=== PATIENT | female | born 1950 | race Two or more races ===

== ENCOUNTER 2017-11-17 12:56 | Outpatient (CLI) | payer OTHER | END 2017-11-17 16:36 | disposition home or self-care (01) | LOC: MAMO-SONO 12:56 | DX: Z12.31 Encounter for screening mammogram for malignant neoplasm of breast (principal); Z87.898 Personal history of other specified conditions ==

== ENCOUNTER 2018-08-25 11:37 | Outpatient (CLI) | payer OTHER | END 2018-08-25 11:55 | disposition home or self-care (01) | LOC: NUCLEAR 11:37 | DX: M81.0 Age-related osteoporosis without current pathological fracture (principal) ==

== ENCOUNTER 2018-09-18 09:41 | Outpatient (CLI) | payer OTHER | END 2018-09-18 09:43 | disposition home or self-care (01) | LOC: SONOGRAMA 09:41 | DX: K80.81 Other cholelithiasis with obstruction (principal); K82.0 Obstruction of gallbladder ==

== ENCOUNTER 2018-09-24 13:16 | Emergency (ER) | payer OTHER ==
[~2018-09-24] VITALS: Ht 165.1 cm; Wt 60.8 kg
[2018-09-24] MEDS ORDERED: SYNTHROID50 MCG (13:27)
== END 2018-09-24 14:07 | disposition home or self-care (01) ==
LOC: ER 13:16
DX: R10.11 Right upper quadrant pain (principal)

== ENCOUNTER 2018-09-26 09:56 | Outpatient (CLI) | payer OTHER ==
[~2018-09-26 09:56] MED LIST: SYNTHROID50 MCG
== END 2018-09-26 10:00 | disposition home or self-care (01) ==
LOC: LAB 09:56
DX: E06.3 Autoimmune thyroiditis (principal)

== ENCOUNTER 2018-10-01 11:31 | Outpatient (CLI) | payer OTHER | END 2018-10-01 11:41 | disposition home or self-care (01) | LOC: NUCLEAR 11:31 | DX: K82.9 Disease of gallbladder, unspecified (principal) | CPT/HCPCS: 78227; A9537 ==

== ENCOUNTER 2018-11-20 09:04 | Outpatient (CLI) | payer OTHER | END 2018-11-20 09:22 | disposition home or self-care (01) | LOC: MAMO-SONO 09:04 | DX: Z12.31 Encounter for screening mammogram for malignant neoplasm of breast (principal); Z87.898 Personal history of other specified conditions; N64.89 Other specified disorders of breast; R07.82 Intercostal pain ==

== ENCOUNTER 2018-12-11 12:17 | Outpatient (CLI) | payer OTHER | END 2018-12-11 12:22 | disposition home or self-care (01) | LOC: LAB 12:17 | DX: E11.21 Type 2 diabetes mellitus with diabetic nephropathy (principal); N39.0 Urinary tract infection, site not specified; E11.65 Type 2 diabetes mellitus with hyperglycemia; D64.89 Other specified anemias; E78.2 Mixed hyperlipidemia; Z12.11 Encounter for screening for malignant neoplasm of colon ==

== ENCOUNTER 2019-04-12 16:08 | Outpatient (CLI) | payer OTHER | END 2019-04-12 17:27 | disposition home or self-care (01) | LOC: LAB 16:08 | DX: M81.0 Age-related osteoporosis without current pathological fracture (principal) ==

== ENCOUNTER 2019-05-10 13:56 | Outpatient (CLI) | payer OTHER | END 2019-05-10 14:04 | disposition home or self-care (01) | LOC: LAB 13:56 | DX: E06.3 Autoimmune thyroiditis (principal) ==

== ENCOUNTER 2019-07-14 15:14 | Outpatient (CLI) | payer OTHER | END 2019-07-14 15:20 | disposition home or self-care (01) | LOC: LAB 15:14 | DX: R31.1 Benign essential microscopic hematuria (principal) ==

== ENCOUNTER 2019-07-17 13:22 | Emergency (ER) | payer OTHER ==
[~2019-07-17] VITALS: Ht 165.1 cm; Wt 59.9 kg
== END 2019-07-17 15:48 | disposition home or self-care (01) ==
LOC: ER 13:22
DX: E03.8 Other specified hypothyroidism (principal); R00.2 Palpitations

== ENCOUNTER 2019-07-23 11:17 | Outpatient (CLI) | payer OTHER | END 2019-07-23 11:21 | disposition home or self-care (01) | LOC: SONOGRAMA 11:17 | DX: N28.1 Cyst of kidney, acquired (principal) ==

== ENCOUNTER 2019-07-24 10:11 | Outpatient (CLI) | payer OTHER | END 2019-07-24 10:19 | disposition home or self-care (01) | LOC: LAB 10:11 | DX: I10 Essential (primary) hypertension (principal) ==

== ENCOUNTER 2019-09-25 11:46 | Emergency (ER) | payer OTHER ==
[~2019-09-25] VITALS: Ht 165.1 cm; Wt 61.2 kg
== END 2019-09-25 16:19 | disposition home or self-care (01) ==
LOC: ER 11:46
DX: R10.31 Right lower quadrant pain (principal)

== ENCOUNTER 2019-11-10 10:29 | Outpatient (CLI) | payer OTHER | END 2019-11-10 15:00 | disposition home or self-care (01) | LOC: LAB 10:29 | DX: E11.65 Type 2 diabetes mellitus with hyperglycemia (principal); E78.2 Mixed hyperlipidemia; E03.8 Other specified hypothyroidism; N39.0 Urinary tract infection, site not specified; D64.89 Other specified anemias; Z12.11 Encounter for screening for malignant neoplasm of colon ==

== ENCOUNTER → 2019-11-11 10:41 | Outpatient (CLI) | payer OTHER | END | disposition home or self-care (01) | LOC: LAB 10:41 | DX: E11.65 Type 2 diabetes mellitus with hyperglycemia (principal); E78.2 Mixed hyperlipidemia; E03.8 Other specified hypothyroidism; N39.0 Urinary tract infection, site not specified; D64.89 Other specified anemias; Z12.11 Encounter for screening for malignant neoplasm of colon ==

== ENCOUNTER 2019-11-23 09:22 | Outpatient (CLI) | payer OTHER | END 2019-11-23 09:25 | disposition home or self-care (01) | LOC: MAMO-SONO 09:22 | DX: Z12.31 Encounter for screening mammogram for malignant neoplasm of breast (principal) ==

== ENCOUNTER 2020-05-16 09:30 | Outpatient (CLI) | payer OTHER | END 2020-05-16 09:40 | disposition home or self-care (01) | LOC: LAB 09:30 | PROVIDERS: ATTEND Specialist | DX: N39.0 Urinary tract infection, site not specified (principal); B96.29 Other Escherichia coli [E. coli] as the cause of diseases classified elsewhere ==

== ENCOUNTER 2020-12-09 09:02 | Outpatient (CLI) | payer OTHER | END 2020-12-09 09:09 | disposition home or self-care (01) | LOC: LAB 09:02 | PROVIDERS: ATTEND Specialist | DX: E55.9 Vitamin D deficiency, unspecified (principal); N39.0 Urinary tract infection, site not specified; E03.8 Other specified hypothyroidism; D64.89 Other specified anemias; Z12.11 Encounter for screening for malignant neoplasm of colon; E78.2 Mixed hyperlipidemia; J45.998 Other asthma ==

== ENCOUNTER → 2021-02-20 | Outpatient (CLI) | payer OTHER | END | disposition home or self-care (01) | LOC: NUCLEAR 09:57 | PROVIDERS: ATTEND Specialist | DX: I82.493 Acute embolism and thrombosis of other specified deep vein of lower extremity, bilateral (principal) ==

== ENCOUNTER 2021-03-08 13:03 | Outpatient (CLI) | payer OTHER | END 2021-03-08 13:08 | disposition home or self-care (01) | LOC: NUCLEAR 13:03 | PROVIDERS: ATTEND Specialist | DX: M81.0 Age-related osteoporosis without current pathological fracture (principal) ==

== ENCOUNTER → 2021-04-04 | Outpatient (CLI) | payer OTHER | END | disposition home or self-care (01) | LOC: MAMO-SONO 10:23 | PROVIDERS: ATTEND Specialist | DX: Z12.31 Encounter for screening mammogram for malignant neoplasm of breast (principal) ==

== ENCOUNTER → 2021-05-16 11:15 | Outpatient (CLI) | payer OTHER | END | disposition home or self-care (01) | LOC: LAB 11:15 | PROVIDERS: ATTEND Specialist | DX: D64.89 Other specified anemias (principal); E03.8 Other specified hypothyroidism; E78.2 Mixed hyperlipidemia ==

== ENCOUNTER 2021-05-22 07:17 | Outpatient (CLI) | payer OTHER | END 2021-05-22 07:19 | disposition home or self-care (01) | LOC: SONOGRAMA 07:17 | PROVIDERS: ATTEND Specialist | DX: Q61.01 Congenital single renal cyst (principal); K80.00 Calculus of gallbladder with acute cholecystitis without obstruction ==

== ENCOUNTER → 2021-08-04 08:49 | Outpatient (CLI) | payer OTHER | END | disposition home or self-care (01) | LOC: LAB 08:49 | PROVIDERS: ATTEND Specialist | DX: N39.0 Urinary tract infection, site not specified (principal); E11.65 Type 2 diabetes mellitus with hyperglycemia; E78.2 Mixed hyperlipidemia ==

== ENCOUNTER 2021-10-29 09:13 | Outpatient (CLI) | payer OTHER | END 2021-10-29 09:14 | disposition home or self-care (01) | LOC: RAD 09:13 | PROVIDERS: ATTEND Specialist | DX: E04.1 Nontoxic single thyroid nodule (principal); J45.998 Other asthma; N20.0 Calculus of kidney ==

== ENCOUNTER 2021-11-03 09:18 | Outpatient (CLI) | payer OTHER | END 2021-11-03 09:25 | disposition home or self-care (01) | LOC: LAB 09:18 | PROVIDERS: ATTEND Internal Medicine Endocrinology, Diabetes & Metabolism | DX: D64.89 Other specified anemias (principal); E78.2 Mixed hyperlipidemia; E55.9 Vitamin D deficiency, unspecified; E03.8 Other specified hypothyroidism; D50.8 Other iron deficiency anemias ==

== ENCOUNTER 2021-11-24 08:40 | Outpatient (CLI) | payer OTHER | END 2021-11-24 08:49 | disposition home or self-care (01) | LOC: LAB 08:40 | PROVIDERS: ATTEND Specialist | DX: E03.9 Hypothyroidism, unspecified (principal); E11.21 Type 2 diabetes mellitus with diabetic nephropathy; N39.9 Disorder of urinary system, unspecified; E78.2 Mixed hyperlipidemia; Z12.11 Encounter for screening for malignant neoplasm of colon; D64.9 Anemia, unspecified; E11.65 Type 2 diabetes mellitus with hyperglycemia ==

== ENCOUNTER → 2022-01-17 | Outpatient (CLI) | payer OTHER | END | disposition home or self-care (01) | LOC: SONOGRAMA 10:16 | PROVIDERS: ATTEND Specialist | DX: N28.1 Cyst of kidney, acquired (principal) ==

== ENCOUNTER 2022-02-02 09:06 | Outpatient (CLI) | payer OTHER | END 2022-02-02 09:18 | disposition home or self-care (01) | LOC: LAB 09:06 | PROVIDERS: ATTEND Internal Medicine Endocrinology, Diabetes & Metabolism | DX: E03.9 Hypothyroidism, unspecified (principal); D64.9 Anemia, unspecified; I10 Essential (primary) hypertension; E78.2 Mixed hyperlipidemia ==

== ENCOUNTER → 2022-07-27 08:19 | Outpatient (CLI) | payer OTHER | END | disposition home or self-care (01) | LOC: LAB 08:19 | PROVIDERS: ATTEND Internal Medicine Endocrinology, Diabetes & Metabolism | DX: E03.9 Hypothyroidism, unspecified (principal); D64.9 Anemia, unspecified; I10 Essential (primary) hypertension; E78.2 Mixed hyperlipidemia ==

== ENCOUNTER 2022-10-26 08:21 | Outpatient (CLI) | payer OTHER | END 2022-10-26 08:25 | disposition home or self-care (01) | LOC: LAB 08:21 | PROVIDERS: ATTEND Specialist | DX: E03.9 Hypothyroidism, unspecified (principal); N39.9 Disorder of urinary system, unspecified; Z12.11 Encounter for screening for malignant neoplasm of colon; D64.9 Anemia, unspecified; K75.81 Nonalcoholic steatohepatitis (NASH); N39.0 Urinary tract infection, site not specified ==

== ENCOUNTER 2022-10-30 09:43 | Outpatient (CLI) | payer OTHER | END 2022-10-30 09:47 | disposition home or self-care (01) | LOC: MAMO-SONO 09:43 | PROVIDERS: ATTEND Internal Medicine Endocrinology, Diabetes & Metabolism | DX: N64.0 Fissure and fistula of nipple (principal) ==

== ENCOUNTER 2023-01-02 09:06 | Outpatient (CLI) | payer OTHER | END 2023-01-02 09:18 | disposition home or self-care (01) | LOC: SONOGRAMA 09:06 | PROVIDERS: ATTEND Specialist | DX: R31.1 Benign essential microscopic hematuria (principal) ==

== ENCOUNTER 2023-02-01 08:24 | Outpatient (CLI) | payer OTHER | END 2023-02-01 08:27 | disposition home or self-care (01) | LOC: LAB 08:24 | PROVIDERS: ATTEND Internal Medicine Endocrinology, Diabetes & Metabolism | DX: E11.65 Type 2 diabetes mellitus with hyperglycemia (principal); E03.9 Hypothyroidism, unspecified; E55.9 Vitamin D deficiency, unspecified; E78.2 Mixed hyperlipidemia; N39.0 Urinary tract infection, site not specified ==

== ENCOUNTER 2023-02-06 12:08 | Outpatient (CLI) | payer OTHER | END 2023-02-06 12:14 | disposition home or self-care (01) | LOC: RAD 12:08 | PROVIDERS: ATTEND Specialist | DX: J45.991 Cough variant asthma (principal) ==

== ENCOUNTER 2023-02-08 08:20 | Outpatient (CLI) | payer OTHER | END 2023-02-08 08:28 | disposition home or self-care (01) | LOC: LAB 08:20 | PROVIDERS: ATTEND Specialist | DX: M00.80 Arthritis due to other bacteria, unspecified joint (principal); E11.69 Type 2 diabetes mellitus with other specified complication; E03.8 Other specified hypothyroidism; N39.9 Disorder of urinary system, unspecified; E11.21 Type 2 diabetes mellitus with diabetic nephropathy; D64.89 Other specified anemias; Z13.220 Encounter for screening for lipoid disorders ==

== ENCOUNTER 2023-03-12 13:33 | Outpatient (CLI) | payer OTHER | END 2023-03-12 13:34 | disposition home or self-care (01) | LOC: NUCLEAR 13:33 | PROVIDERS: ATTEND Internal Medicine Endocrinology, Diabetes & Metabolism | DX: M81.0 Age-related osteoporosis without current pathological fracture (principal) ==

== ENCOUNTER 2023-04-19 08:35 | Outpatient (CLI) | payer OTHER | END 2023-04-19 08:39 | disposition home or self-care (01) | LOC: LAB 08:35 | PROVIDERS: ATTEND Internal Medicine Endocrinology, Diabetes & Metabolism | DX: E03.8 Other specified hypothyroidism (principal); D64.9 Anemia, unspecified; I10 Essential (primary) hypertension ==

== ENCOUNTER 2023-05-10 08:08 | Outpatient (CLI) | payer OTHER | END 2023-05-10 08:21 | disposition home or self-care (01) | LOC: LAB 08:08 | PROVIDERS: ATTEND Specialist | DX: M00.80 Arthritis due to other bacteria, unspecified joint (principal); N39.9 Disorder of urinary system, unspecified; E11.69 Type 2 diabetes mellitus with other specified complication; R19.5 Other fecal abnormalities; Z13.220 Encounter for screening for lipoid disorders; E03.8 Other specified hypothyroidism; D64.89 Other specified anemias ==

== ENCOUNTER → 2023-06-19 | Outpatient (CLI) | payer OTHER | END | disposition home or self-care (01) | LOC: RAD 11:59 | PROVIDERS: ATTEND Physical Medicine & Rehabilitation | DX: M25.561 Pain in right knee (principal) ==

== ENCOUNTER 2023-07-05 08:29 | Outpatient (CLI) | payer OTHER ==
[2023-07-05 10:06] LABS: CALCIUM 8.2 mg/dL (8.5-10.1); CREATININE SERUM 0.46 mg/dL (0.55-1.02); GFR 133.15; POTASSIUM 3.82 mEq/L (3.5-5.1)
== END 2023-07-05 08:31 | disposition home or self-care (01) ==
LOC: LAB 08:29
PROVIDERS: ATTEND Specialist
DX: N28.1 Cyst of kidney, acquired (principal)

== ENCOUNTER 2023-08-16 08:57 | Outpatient (CLI) | payer OTHER ==
[2023-08-16 10:21] LABS: HEMATOCRIT 40.1 % (36.0-45.00); HEMOGLOBIN 13.6 g/dL (12.0-15.00); MEAN CELL VOLUME 92.3 fL (80.00-100.00); MEAN CORPUSCULAR HEMOGLOBIN 31.4 pg (27.00-32.0); PLATELET COUNT 285 K/uL (150-450); RED BLOOD COUNT 4.34 M/uL (4.00-6.00)
[2023-08-16 11:22] LABS: ALBUMIN 3.8 gm/dL (3.4-5.0); BILIRUBIN TOTAL 0.81 mg/dL (0.3-1.2); CALCIUM 8.9 mg/dL (8.5-10.1); CREATININE SERUM 0.49 mg/dL (0.55-1.02); FREE TRIODOTIRONINE 2.59 pg/ml (2.18-3.98); GFR 123.79; GLOBULINA 3.1 G/DL (2.4-3.5); POTASSIUM 3.81 mEq/L (3.5-5.1); T4 FREE 1.27 NG/ML (0.76-1.46); TOTAL PROTEIN 6.9 gm/dL (6.4-8.2); TSH 0.654 uIU/mL (0.358-3.74)
== END 2023-08-16 08:59 | disposition home or self-care (01) ==
LOC: LAB 08:57
PROVIDERS: ATTEND Specialist
DX: E11.69 Type 2 diabetes mellitus with other specified complication (principal); E03.8 Other specified hypothyroidism; Z13.220 Encounter for screening for lipoid disorders; N39.9 Disorder of urinary system, unspecified; R19.5 Other fecal abnormalities; D64.89 Other specified anemias; E11.21 Type 2 diabetes mellitus with diabetic nephropathy

== ENCOUNTER 2023-11-01 11:18 | Outpatient (CLI) | payer OTHER ==
[2023-11-01 13:02] LABS: HEMATOCRIT 41.4 % (36.0-45.00); HEMOGLOBIN 14.2 g/dL (12.0-15.00); MEAN CELL VOLUME 95.2 fL (80.00-100.00); MEAN CORPUSCULAR HEMOGLOBIN 32.6 pg (27.00-32.0); MEAN CORPUSCULAR HGB CONC 34.3 g/dl (32.0-36.0); PLATELET COUNT 271 K/uL (150-450); RED BLOOD COUNT 4.35 M/uL (4.00-6.00); RED CELL DISTRIBUTION WIDTH 13.4 % (11.5-14.5)
[2023-11-01 13:33] LABS: ALBUMIN 3.9 gm/dL (3.4-5.0); BILIRUBIN TOTAL 0.94 mg/dL (0.3-1.2); CALCIUM 8.8 mg/dL (8.5-10.1); CREATININE SERUM 0.53 mg/dL (0.55-1.02); GFR 113.08; T4 FREE 1.35 NG/ML (0.76-1.46); TOTAL PROTEIN 6.9 gm/dL (6.4-8.2); TSH 0.432 uIU/mL (0.358-3.74)
== END 2023-11-01 11:27 | disposition home or self-care (01) ==
LOC: LAB 11:18
PROVIDERS: ATTEND Internal Medicine Endocrinology, Diabetes & Metabolism
DX: I10 Essential (primary) hypertension (principal); E03.9 Hypothyroidism, unspecified; D44.9 Neoplasm of uncertain behavior of unspecified endocrine gland; D51.9 Vitamin B12 deficiency anemia, unspecified

== ENCOUNTER 2023-12-25 10:28 | Outpatient (CLI) | payer OTHER | END 2023-12-25 10:35 | disposition home or self-care (01) | LOC: MAMO-SONO 10:28 | PROVIDERS: ATTEND Specialist | DX: N60.39 Fibrosclerosis of unspecified breast (principal); Z12.39 Encounter for other screening for malignant neoplasm of breast ==

== ENCOUNTER 2023-12-31 09:21 | Outpatient (CLI) | payer OTHER | END 2023-12-31 09:31 | disposition home or self-care (01) | LOC: SONOGRAMA 09:21 | PROVIDERS: ATTEND Specialist | DX: N28.1 Cyst of kidney, acquired (principal); Z91.013 Allergy to seafood ==

== ENCOUNTER → 2024-01-03 08:58 | Outpatient (CLI) | payer OTHER ==
[2024-01-03 12:46] LABS: CALCIUM 8.9 mg/dL (8.5-10.1); CREATININE SERUM 0.54 mg/dL (0.55-1.02); GFR 110.66; POTASSIUM 4.43 mEq/L (3.5-5.1)
[2024-01-03 12:57] LABS: PH,URINE 6.5 (5.0-8.0); URINE APPEARANCE Cloudy; URINE BILIRRUBIN Negative (NEGATIVE); URINE BLOOD Trace; URINE COLOR Yellow; URINE GLUCOSE Negative (NEGATIVE); URINE LEUKOCYTE Negative; URINE NITRATE Negative; URINE PROTEIN Negative (NEGATIVE); URINE UROBILINOGEN 0.2 E.U./dl
[2024-01-03 13:00] LABS: URINE RBC 6.8 uL (0.0-20.8)
[2024-01-03 13:02] LABS: URINE EPITHELIAL CELLS 0.6 uL (0.0-38.8); URINE WBC 0.6 uL (0.0-23.2)
== END | disposition home or self-care (01) ==
LOC: LAB 08:58
PROVIDERS: ATTEND Specialist
DX: N28.1 Cyst of kidney, acquired (principal); A60.04 Herpesviral vulvovaginitis

== ENCOUNTER 2024-06-05 10:31 | Outpatient (CLI) | payer OTHER ==
[2024-06-05 12:41] LABS: HEMATOCRIT 39.6 % (36.0-45.00); HEMOGLOBIN 13.8 g/dL (12.0-15.00); MEAN CELL VOLUME 93.1 fL (80.00-100.00); MEAN CORPUSCULAR HEMOGLOBIN 32.6 pg (27.00-32.0); PLATELET COUNT 259 K/uL (150-450); RED BLOOD COUNT 4.25 M/uL (4.00-6.00); RED CELL DISTRIBUTION WIDTH 13.3 % (11.5-14.5)
[2024-06-05 12:54] LABS: CREATININE URINE RANDOM < 13.00 MG/DL (30-125)
[2024-06-05 13:43] LABS: BILIRUBIN TOTAL 0.92 mg/dL (0.3-1.2); BILIRUBIN,CONJUGATED 0.26 mg/dL (0.0-0.2); BILIRUBIN,UNCONJUGATED 0.66 mg/dL (0.0-0.6); CHOL HDL RATIO 2.7 (0-5.0); FREE TRIODOTIRONINE 2.63 pg/ml (2.18-3.98); T4 FREE 1.19 NG/ML (0.76-1.46); TSH 0.47 uIU/mL (0.358-3.74)
== END 2024-06-05 11:04 | disposition home or self-care (01) ==
LOC: LAB 10:31
PROVIDERS: ATTEND Specialist
DX: E03.9 Hypothyroidism, unspecified (principal); E78.2 Mixed hyperlipidemia; D64.9 Anemia, unspecified; E11.65 Type 2 diabetes mellitus with hyperglycemia; K57.81 Diverticulitis of intestine, part unspecified, with perforation and abscess with bleeding; E11.21 Type 2 diabetes mellitus with diabetic nephropathy

== ENCOUNTER 2024-07-03 08:57 | Outpatient (CLI) | payer OTHER ==
[2024-07-03 10:52] LABS: PH,URINE 6.5 (5.0-8.0); URINE APPEARANCE Clear; URINE BILIRRUBIN Negative (NEGATIVE); URINE BLOOD Negative; URINE COLOR Yellow; URINE GLUCOSE Negative (NEGATIVE); URINE KETONE Negative (NEGATIVE); URINE LEUKOCYTE Negative; URINE NITRATE Negative; URINE PROTEIN Negative (NEGATIVE); URINE UROBILINOGEN 0.2 E.U./dl
[2024-07-03 10:56] LABS: URINE RBC 5.3 uL (0.0-20.8)
[2024-07-03 11:15] LABS: CALCIUM 8.4 mg/dL (8.5-10.1); CREATININE SERUM 0.44 mg/dL (0.55-1.02); GFR 139.78; POTASSIUM 4.3 mEq/L (3.5-5.1)
[2024-07-03 11:16] LABS: URINE BACTERIA 3.7 uL (0.0-1933); URINE EPITHELIAL CELLS 0.4 uL (0.0-38.8); URINE WBC 0.3 uL (0.0-23.2)
== END 2024-07-03 09:06 | disposition home or self-care (01) ==
LOC: LAB 08:57
PROVIDERS: ATTEND Specialist
DX: N28.1 Cyst of kidney, acquired (principal)

== ENCOUNTER 2024-07-13 09:18 | Emergency (ER) | payer OTHER ==
[~2024-07-13] VITALS: Ht 165.1 cm; Wt 63.0 kg
[2024-07-13] MEDS ORDERED: KETOROLAC TROMETHAMINE 30 MG VIAL IM STA (10:35)
== END 2024-07-13 13:23 | disposition home or self-care (01) ==
LOC: ER 09:19
DX: S52.591A Other fractures of lower end of right radius, initial encounter for closed fracture (principal); W19.XXXA Unspecified fall, initial encounter; Y93.89 Activity, other specified; Y92.89 Other specified places as the place of occurrence of the external cause; Y99.8 Other external cause status; E03.8 Other specified hypothyroidism; Z91.013 Allergy to seafood
CPT/HCPCS: 29125; 73110; 96372; 99283; J1885

== ENCOUNTER 2024-07-14 16:17 | Outpatient (CLI) | payer OTHER ==
[2024-07-14 17:11] LABS: HEMATOCRIT 41.1 % (36.0-45.00); HEMOGLOBIN 14.2 g/dL (12.0-15.00); MEAN CELL VOLUME 94.4 fL (80.00-100.00); MEAN CORPUSCULAR HEMOGLOBIN 32.5 pg (27.00-32.0); MEAN CORPUSCULAR HGB CONC 34.5 g/dl (32.0-36.0); PLATELET COUNT 303 K/uL (150-450); RED BLOOD COUNT 4.36 M/uL (4.00-6.00); RED CELL DISTRIBUTION WIDTH 13.1 % (11.5-14.5)
[2024-07-14 17:14] LABS: PH,URINE 5.5 (5.0-8.0); URINE APPEARANCE Clear; URINE BACTERIA 31.4 uL (0.0-1933); URINE BILIRRUBIN Negative (NEGATIVE); URINE BLOOD Large; URINE COLOR Dark Yellow; URINE EPITHELIAL CELLS 6.3 uL (0.0-38.8); URINE GLUCOSE Negative (NEGATIVE); URINE KETONE 15 (NEGATIVE); URINE LEUKOCYTE Trace; URINE NITRATE Negative; URINE PROTEIN 30 (NEGATIVE); URINE RBC 350.5 uL (0.0-20.8); URINE WBC 7.1 uL (0.0-23.2)
[2024-07-14 17:21] LABS: INR 0.95; PARTIAL THROMBOPLASTIN TIME 28.4 SECONDS (22.0-34.0); PROTHROMBIN TIME 10.4 SECONDS (9.0-11.5)
[2024-07-14 17:25] LABS: ALBUMIN 4.3 gm/dL (3.4-5.0); BILIRUBIN TOTAL 1.02 mg/dL (0.3-1.2); CALCIUM 8.6 mg/dL (8.5-10.1); CREATININE SERUM 0.57 mg/dL (0.55-1.02); GFR 103.68; GLOBULINA 3.2 G/DL (2.4-3.5); POTASSIUM 3.88 mEq/L (3.5-5.1); TOTAL PROTEIN 7.5 gm/dL (6.4-8.2)
[2024-07-14 17:56] LABS: COL EPI 105 SECONDS (82-175)
== END 2024-07-14 16:24 | disposition home or self-care (01) ==
LOC: RAD 16:17
PROVIDERS: ATTEND Orthopaedic Surgery
DX: D64.9 Anemia, unspecified (principal); E88.89 Other specified metabolic disorders; D68.8 Other specified coagulation defects; N39.0 Urinary tract infection, site not specified; Z22.322 Carrier or suspected carrier of Methicillin resistant Staphylococcus aureus; E11.9 Type 2 diabetes mellitus without complications; Z76.89 Persons encountering health services in other specified circumstances

== ENCOUNTER → 2024-07-15 11:22 | Outpatient (CLI) | payer OTHER ==
[~2024-07-15 11:22] MED LIST changes: +B12 ACTIVE1000 MCG PO; +BIOTIN1 MG PO; +ZETIA10 MG PO
== END | disposition home or self-care (01) ==
LOC: EKG 11:22
PROVIDERS: ATTEND Orthopaedic Surgery
DX: I10 Essential (primary) hypertension (principal)

== ENCOUNTER 2024-07-15 13:54 | Outpatient (CLI) | payer OTHER ==
[~2024-07-15 13:54] MED LIST changes: -B12 ACTIVE1000 MCG PO; -BIOTIN1 MG PO; -ZETIA10 MG PO
[2024-07-16] MEDS ORDERED: B12 ACTIVE1000 MCG PO (10:41)
[2024-07-16] MEDS ORDERED: BIOTIN1 MG PO (10:41)
[2024-07-16] MEDS ORDERED: ZETIA10 MG PO (10:41)
== END 2024-07-15 13:56 | disposition home or self-care (01) ==
LOC: SONOGRAMA 13:54
PROVIDERS: ATTEND Specialist
DX: S37.009A Unspecified injury of unspecified kidney, initial encounter (principal)

== ENCOUNTER 2024-07-20 05:20 | Day surgery (SDC) | payer OTHER ==
[~2024-07-20 05:20] MED LIST changes: +B12 ACTIVE1000 MCG PO; +BIOTIN1 MG PO; +ZETIA10 MG PO
[2024-07-20] MEDS ORDERED: CEFAZOLIN SODIUM 1,000 MG VIAL IV ONE (08:30)
[2024-07-20] MEDS ORDERED: MORPHINE SULFATE 4 MG/ML VIAL IV ONE ×2 (10:00→10:30)
== END 2024-07-20 13:20 | disposition home or self-care (01) ==
LOC: CIR.AMB 05:20
PROVIDERS: ATTEND Orthopaedic Surgery
DX: S52.571A Other intraarticular fracture of lower end of right radius, initial encounter for closed fracture (principal); M24.531 Contracture, right wrist; Z91.013 Allergy to seafood; E03.9 Hypothyroidism, unspecified
CPT/HCPCS: 25609; 25280; L8699

== ENCOUNTER 2024-07-29 10:38 | Outpatient (CLI) | payer OTHER | END 2024-07-29 10:42 | disposition home or self-care (01) | LOC: RAD 10:38 | PROVIDERS: ATTEND Orthopaedic Surgery | DX: S52.572D Other intraarticular fracture of lower end of left radius, subsequent encounter for closed fracture with routine healing (principal) ==

== ENCOUNTER 2024-09-01 09:45 | Outpatient (CLI) | payer OTHER ==
[2024-09-01 10:21] LABS: HEMATOCRIT 38.9 % (36.0-45.00); HEMOGLOBIN 13.6 g/dL (12.0-15.00); MEAN CELL VOLUME 92.9 fL (80.00-100.00); MEAN CORPUSCULAR HEMOGLOBIN 32.5 pg (27.00-32.0); PLATELET COUNT 296 K/uL (150-450); RED BLOOD COUNT 4.19 M/uL (4.00-6.00); RED CELL DISTRIBUTION WIDTH 13.2 % (11.5-14.5)
[2024-09-01 10:47] LABS: PH,URINE 6.5 (5.0-8.0); URINE APPEARANCE Clear; URINE BILIRRUBIN Negative (NEGATIVE); URINE BLOOD Trace; URINE COLOR Yellow; URINE GLUCOSE Negative (NEGATIVE); URINE KETONE Negative (NEGATIVE); URINE LEUKOCYTE Negative; URINE NITRATE Negative; URINE PROTEIN Negative (NEGATIVE); URINE UROBILINOGEN 0.2 E.U./dl
[2024-09-01 10:51] LABS: URINE RBC 2.4 uL (0.0-20.8)
[2024-09-01 10:53] LABS: ALKALINE PHOSPHATASE 37 U/L (50-136); ALT/SGPT 17 U/L (12-78); ANION GAP 6 (10.0-20.0); AST/SGOT 17 U/L (15-37); BILIRUBIN TOTAL 0.82 mg/dL (0.3-1.2); BLOOD UREA NITROGEN 7 mg/dL (7-18); BUN CREA RATIO 16 (7.0-25.0); CALCIUM 8.8 mg/dL (8.5-10.1); CARBON DIOXIDE 32 mEq/L (21-32); CHLORIDE 107 mmol/L (98-107); CHOL HDL RATIO 2.8 (0-5.0); CHOLESTEROL 204 mg/dL (0-200); CREATININE SERUM 0.45 mg/dL (0.55-1.02); GLOBULINA 2.8 G/DL (2.4-3.5); GLUCOSE FASTING 91 mg/dL (65-100); HDL 73 mg/dl (40-60); LDL 110 mg/dl (0-130); OSMOLALITY SERUM 279 MOSM/KG (275-295); POTASSIUM 3.73 mEq/L (3.5-5.1); SODIUM 141 mmol/L (136-145); T4 FREE 1.21 NG/ML (0.76-1.46); TOTAL PROTEIN 6.8 gm/dL (6.4-8.2); TRIGLYCERIDES 103 mg/dL (0-150); VLDL 20 (0-39)
[2024-09-01 10:59] LABS: C-REACTIVE PROTEIN < 0.29 MG/DL (0.00-0.29)
[2024-09-01 11:06] LABS: URINE BACTERIA 0 uL (0.0-1933); URINE EPITHELIAL CELLS 0.1 uL (0.0-38.8); URINE WBC 0.2 uL (0.0-23.2)
[2024-09-01 11:16] LABS: CREATININE URINE RANDOM < 13.00 MG/DL (30-125)
== END 2024-09-01 09:49 | disposition home or self-care (01) ==
LOC: LAB 09:45
PROVIDERS: ATTEND Specialist
DX: M00.80 Arthritis due to other bacteria, unspecified joint (principal); E11.69 Type 2 diabetes mellitus with other specified complication; E11.21 Type 2 diabetes mellitus with diabetic nephropathy; N39.9 Disorder of urinary system, unspecified; Z13.220 Encounter for screening for lipoid disorders; E03.8 Other specified hypothyroidism; D64.89 Other specified anemias

== ENCOUNTER 2024-09-07 07:54 | Outpatient (CLI) | payer OTHER ==
[2024-09-07 08:30] LABS: PH,URINE 6.5 (5.0-8.0); URINE APPEARANCE Clear; URINE BILIRRUBIN Negative (NEGATIVE); URINE BLOOD Trace; URINE COLOR Yellow; URINE GLUCOSE Negative (NEGATIVE); URINE KETONE Negative (NEGATIVE); URINE LEUKOCYTE Negative; URINE NITRATE Negative; URINE PROTEIN Negative (NEGATIVE); URINE UROBILINOGEN 0.2 E.U./dl
[2024-09-07 08:31] LABS: URINE RBC 2.8 uL (0.0-20.8)
[2024-09-07 08:32] LABS: HEMATOCRIT 38.5 % (36.0-45.00); HEMOGLOBIN 13.1 g/dL (12.0-15.00); MEAN CELL VOLUME 94.9 fL (80.00-100.00); MEAN CORPUSCULAR HEMOGLOBIN 32.3 pg (27.00-32.0); PLATELET COUNT 278 K/uL (150-450); RED BLOOD COUNT 4.05 M/uL (4.00-6.00); RED CELL DISTRIBUTION WIDTH 12.9 % (11.5-14.5)
[2024-09-07 08:33] LABS: URINE BACTERIA 2.5 uL (0.0-1933); URINE EPITHELIAL CELLS 0.1 uL (0.0-38.8); URINE WBC 0.1 uL (0.0-23.2)
[2024-09-07 09:31] LABS: ALBUMIN 3.8 gm/dL (3.4-5.0); BILIRUBIN TOTAL 0.88 mg/dL (0.3-1.2); CALCIUM 8.8 mg/dL (8.5-10.1); CHOL HDL RATIO 2.7 (0-5.0); CREATININE SERUM 0.44 mg/dL (0.55-1.02); FREE TRIODOTIRONINE 2.19 pg/ml (2.18-3.98); GFR 139.78; GLOBULINA 2.8 G/DL (2.4-3.5); POTASSIUM 3.65 mEq/L (3.5-5.1); T4 FREE 1.12 NG/ML (0.76-1.46); TOTAL PROTEIN 6.6 gm/dL (6.4-8.2); TSH 3.15 uIU/mL (0.358-3.74)
[2024-09-07 10:45] LABS: VITAMIN D3 25 HYDROXY 57.32 ng/ml (30-120)
== END 2024-09-07 08:01 | disposition home or self-care (01) ==
LOC: LAB 07:54
PROVIDERS: ATTEND Internal Medicine Endocrinology, Diabetes & Metabolism
DX: E11.65 Type 2 diabetes mellitus with hyperglycemia (principal); E03.9 Hypothyroidism, unspecified; D64.9 Anemia, unspecified; E53.8 Deficiency of other specified B group vitamins; E78.2 Mixed hyperlipidemia; E55.9 Vitamin D deficiency, unspecified; N39.0 Urinary tract infection, site not specified

== ENCOUNTER 2024-09-07 08:27 | Outpatient (CLI) | payer OTHER | END 2024-09-07 08:33 | disposition home or self-care (01) | LOC: SONOGRAMA 08:27 | PROVIDERS: ATTEND Internal Medicine Endocrinology, Diabetes & Metabolism | DX: E04.1 Nontoxic single thyroid nodule (principal) ==

== ENCOUNTER 2024-10-22 09:15 | Outpatient (CLI) | payer OTHER ==
[2024-10-22 10:51] LABS: ALBUMIN 3.8 gm/dL (3.4-5.0); BILIRUBIN TOTAL 0.6 mg/dL (0.3-1.2); CALCIUM 8.9 mg/dL (8.5-10.1); CREATININE SERUM 0.53 mg/dL (0.55-1.02); GFR 112.76; GLOBULINA 2.8 G/DL (2.4-3.5); PHOSPHOROUS 3.9 mg/dL (2.5-4.9); POTASSIUM 4.03 mEq/L (3.5-5.1); TOTAL PROTEIN 6.6 gm/dL (6.4-8.2)
== END 2024-10-22 09:28 | disposition home or self-care (01) ==
LOC: LAB 09:15
PROVIDERS: ATTEND Orthopaedic Surgery
DX: E21.3 Hyperparathyroidism, unspecified (principal)

== ENCOUNTER 2024-12-01 11:56 | Outpatient (CLI) | payer OTHER | END 2024-12-01 12:05 | disposition home or self-care (01) | LOC: RAD 11:56 | PROVIDERS: ATTEND Orthopaedic Surgery | DX: S52.572D Other intraarticular fracture of lower end of left radius, subsequent encounter for closed fracture with routine healing (principal) ==

== ENCOUNTER 2024-12-06 09:17 | Outpatient (CLI) | payer OTHER ==
[2024-12-06 09:59] VITALS: BP 129/74
[2024-12-06 10:14] LABS: HEMATOCRIT 40.1 % (36.0-45.00); HEMOGLOBIN 13.4 g/dL (12.0-15.00); MEAN CELL VOLUME 95.5 fL (80.00-100.00); MEAN CORPUSCULAR HEMOGLOBIN 31.8 pg (27.00-32.0); MEAN CORPUSCULAR HGB CONC 33.3 g/dl (32.0-36.0); PLATELET COUNT 283 K/uL (150-450); RED CELL DISTRIBUTION WIDTH 12.8 % (11.5-14.5)
[2024-12-06 10:17] LABS: PH,URINE 6.5 (5.0-8.0); URINE APPEARANCE Clear; URINE BILIRRUBIN Negative (NEGATIVE); URINE BLOOD Trace; URINE COLOR Yellow; URINE GLUCOSE Negative (NEGATIVE); URINE KETONE Negative (NEGATIVE); URINE LEUKOCYTE Negative; URINE NITRATE Negative; URINE PROTEIN Negative (NEGATIVE); URINE UROBILINOGEN 0.2 E.U./dl
[2024-12-06 10:20] LABS: URINE RBC 6.7 uL (0.0-20.8)
[2024-12-06 10:24] LABS: COL EPI 115 SECONDS (82-175)
[2024-12-06 10:27] LABS: INR 0.99; PARTIAL THROMBOPLASTIN TIME 27.9 SECONDS (22.0-34.0); PROTHROMBIN TIME 10.8 SECONDS (9.0-11.5)
[2024-12-06 10:45] LABS: ALBUMIN 3.9 gm/dL (3.4-5.0); BILIRUBIN TOTAL 0.83 mg/dL (0.3-1.2); CALCIUM 9.2 mg/dL (8.5-10.1); CREATININE SERUM 0.53 mg/dL (0.55-1.02); GFR 112.76; GLOBULINA 2.9 G/DL (2.4-3.5); POTASSIUM 3.93 mEq/L (3.5-5.1); TOTAL PROTEIN 6.8 gm/dL (6.4-8.2)
[2024-12-06 11:53] LABS: URINE BACTERIA 1.2 uL (0.0-1933); URINE WBC 0.3 uL (0.0-23.2)
== END 2024-12-06 12:58 | disposition home or self-care (01) ==
LOC: RAD 09:17
PROVIDERS: ATTEND Orthopaedic Surgery
DX: I10 Essential (primary) hypertension (principal); Z76.89 Persons encountering health services in other specified circumstances; D64.9 Anemia, unspecified; E88.9 Metabolic disorder, unspecified; D68.8 Other specified coagulation defects; N39.0 Urinary tract infection, site not specified; E11.8 Type 2 diabetes mellitus with unspecified complications; Z22.322 Carrier or suspected carrier of Methicillin resistant Staphylococcus aureus

== ENCOUNTER 2024-12-06 10:54 | Outpatient (CLI) | payer OTHER | END 2024-12-06 10:58 | disposition home or self-care (01) | LOC: RAD 10:54 | PROVIDERS: ATTEND Orthopaedic Surgery | DX: M25.511 Pain in right shoulder (principal) ==

== ENCOUNTER 2024-12-09 10:04 | Outpatient (CLI) | payer OTHER ==
[2024-12-09 10:48] LABS: HEMATOCRIT 37.6 % (36.0-45.00); HEMOGLOBIN 13.1 g/dL (12.0-15.00); MEAN CELL VOLUME 93.8 fL (80.00-100.00); MEAN CORPUSCULAR HEMOGLOBIN 32.6 pg (27.00-32.0); MEAN CORPUSCULAR HGB CONC 34.8 g/dl (32.0-36.0); PLATELET COUNT 274 K/uL (150-450); RED BLOOD COUNT 4.01 M/uL (4.00-6.00)
[2024-12-09 10:51] LABS: PH,URINE 6.5 (5.0-8.0); URINE APPEARANCE Clear; URINE BACTERIA 4.8 uL (0.0-1933); URINE BILIRRUBIN Negative (NEGATIVE); URINE BLOOD Trace; URINE COLOR Yellow; URINE GLUCOSE Negative (NEGATIVE); URINE KETONE Negative (NEGATIVE); URINE LEUKOCYTE Negative; URINE NITRATE Negative; URINE PROTEIN Negative (NEGATIVE); URINE RBC 5.8 uL (0.0-20.8); URINE UROBILINOGEN 0.2 E.U./dl
[2024-12-09 11:06] LABS: CREATININE URINE RANDOM < 13.00 MG/DL (30-125)
[2024-12-09 11:33] LABS: URINE EPITHELIAL CELLS 0.3 uL (0.0-38.8); URINE WBC 0.4 uL (0.0-23.2)
[2024-12-09 11:57] LABS: ALBUMIN 3.8 gm/dL (3.4-5.0); BILIRUBIN TOTAL 0.69 mg/dL (0.3-1.2); CALCIUM 8.6 mg/dL (8.5-10.1); CHOL HDL RATIO 2.3 (0-5.0); CREATININE SERUM 0.49 mg/dL (0.55-1.02); FREE TRIODOTIRONINE 2.16 pg/ml (2.18-3.98); GFR 123.45; GLOBULINA 2.8 G/DL (2.4-3.5); POTASSIUM 3.85 mEq/L (3.5-5.1); T4 FREE 1.1 NG/ML (0.76-1.46); TOTAL PROTEIN 6.6 gm/dL (6.4-8.2)
[2024-12-09 11:58] LABS: TSH 7.48 uIU/mL (0.358-3.74)
== END 2024-12-09 10:05 | disposition home or self-care (01) ==
LOC: LAB 10:04
PROVIDERS: ATTEND Specialist
DX: E03.9 Hypothyroidism, unspecified (principal); E11.21 Type 2 diabetes mellitus with diabetic nephropathy; N39.9 Disorder of urinary system, unspecified; E78.2 Mixed hyperlipidemia; E11.65 Type 2 diabetes mellitus with hyperglycemia; D64.9 Anemia, unspecified; N39.0 Urinary tract infection, site not specified; E55.9 Vitamin D deficiency, unspecified

== ENCOUNTER 2024-12-15 10:47 | Outpatient (CLI) | payer OTHER ==
[2024-12-15] MEDS ORDERED: CENTRUM ADULTS1 EACH PO (13:11)
== END 2024-12-15 10:52 | disposition home or self-care (01) ==
LOC: RAD 10:47
PROVIDERS: ATTEND Orthopaedic Surgery
DX: M84.834 Other disorders of continuity of bone, left radius (principal); T84.84XD Pain due to internal orthopedic prosthetic devices, implants and grafts, subsequent encounter; X58.XXXD Exposure to other specified factors, subsequent encounter; S52.572S Other intraarticular fracture of lower end of left radius, sequela; X58.XXXS Exposure to other specified factors, sequela

== ENCOUNTER 2024-12-20 05:14 | Day surgery (SDC) | payer OTHER ==
[2024-12-15 13:11] VITALS: BP 129/74
[~2024-12-20] VITALS: Ht 165.1 cm; Wt 61.2 kg
[~2024-12-20 05:14] MED LIST changes: +CENTRUM ADULTS1 EACH PO
[2024-12-20] MEDS ORDERED: CEFAZOLIN SODIUM 1,000 MG VIAL IV ONE (08:30)
[2024-12-20] MEDS ORDERED: BUPIVACAINE HCL 30 ML VIAL IJ ONE (08:30)
[2024-12-20] MEDS ORDERED: ISOPROPYL ALCOHOL 30 ML OUNCE TOP ONE (08:30)
[2024-12-20] MEDS ORDERED: MORPHINE SULFATE 4 MG/ML VIAL IV ONE ×2 (09:40→10:10)
== END 2024-12-20 11:15 | disposition home or self-care (01) ==
LOC: CIR.AMB 05:14
PROVIDERS: ATTEND Orthopaedic Surgery
DX: T84.84XD Pain due to internal orthopedic prosthetic devices, implants and grafts, subsequent encounter (principal); M65.841 Other synovitis and tenosynovitis, right hand; E03.8 Other specified hypothyroidism; Z91.013 Allergy to seafood

== ENCOUNTER 2024-12-30 09:53 | Outpatient (CLI) | payer OTHER ==
[2024-12-30 11:14] LABS: URINE APPEARANCE Clear; URINE BILIRRUBIN Negative (NEGATIVE); URINE BLOOD Small; URINE COLOR Yellow; URINE GLUCOSE Negative (NEGATIVE); URINE KETONE Negative (NEGATIVE); URINE LEUKOCYTE Negative; URINE NITRATE Negative; URINE PROTEIN Negative (NEGATIVE); URINE UROBILINOGEN 0.2 E.U./dl
[2024-12-30 11:17] LABS: URINE BACTERIA 9.7 uL (0.0-1933); URINE RBC 28.2 uL (0.0-20.8)
[2024-12-30 11:29] LABS: CALCIUM 8.7 mg/dL (8.5-10.1); CREATININE SERUM 0.44 mg/dL (0.55-1.02); GFR 139.78; POTASSIUM 4.02 mEq/L (3.5-5.1); URINE EPITHELIAL CELLS 0.4 uL (0.0-38.8); URINE WBC 0.4 uL (0.0-23.2)
== END 2024-12-30 10:00 | disposition home or self-care (01) ==
LOC: LAB 09:53
PROVIDERS: ATTEND Specialist
DX: N28.1 Cyst of kidney, acquired (principal)

== ENCOUNTER 2024-12-30 12:34 | Outpatient (CLI) | payer OTHER | END 2024-12-30 12:38 | disposition home or self-care (01) | LOC: SONOGRAMA 12:34 | PROVIDERS: ATTEND Specialist | DX: N28.1 Cyst of kidney, acquired (principal) ==

== ENCOUNTER 2025-01-18 11:32 | Outpatient (CLI) | payer OTHER | END 2025-01-18 11:38 | disposition home or self-care (01) | LOC: MAMO-SONO 11:32 | PROVIDERS: ATTEND Internal Medicine Endocrinology, Diabetes & Metabolism | DX: N64.9 Disorder of breast, unspecified (principal); Z12.31 Encounter for screening mammogram for malignant neoplasm of breast ==

== ENCOUNTER 2025-03-14 10:52 | Outpatient (CLI) | payer OTHER | END 2025-03-14 10:53 | disposition home or self-care (01) | LOC: NUCLEAR 10:52 | PROVIDERS: ATTEND Internal Medicine Endocrinology, Diabetes & Metabolism | DX: M81.0 Age-related osteoporosis without current pathological fracture (principal) ==

== ENCOUNTER → 2025-03-16 09:50 | Outpatient (CLI) | payer OTHER ==
[2025-03-16 10:40] LABS: BASO % 0.2 % (0.1-1.2); EOS # 0.05 (0.04-0.54); EOS % 0.8 % (0.7-7.0); HEMATOCRIT 40.3 % (34.1-44.9); HEMOGLOBIN 13.5 g/dL (11.2-15.7); LYMPH # 1.52 (1.18-3.74); LYMPH % 22.8 % (19.3-53.1); MEAN CORPUSCULAR HEMOGLOBIN 31.3 pg (25.6-32.2); MONO # 0.51 (0.24-0.82); MONO % 7.7 % (4.7-12.5); NEUT # 4.55 (1.56-6.13); NEUT % 68.2 % (34.0-71.1); PLATELET COUNT 269 K/uL (163-369); RED BLOOD COUNT 4.32 M/uL (3.93-5.22); RED CELL DISTRIBUTION WIDTH 11.9 % (11.6-14.4)
[2025-03-16 11:15] LABS: PH,URINE 6.5 (5.0-8.0); URINE APPEARANCE Clear; URINE BILIRRUBIN Negative (NEGATIVE); URINE BLOOD Small; URINE COLOR Yellow; URINE GLUCOSE Negative (NEGATIVE); URINE KETONE Negative (NEGATIVE); URINE LEUKOCYTE Negative; URINE NITRATE Negative; URINE PROTEIN Negative (NEGATIVE); URINE UROBILINOGEN 0.2 E.U./dl
[2025-03-16 11:16] LABS: URINE BACTERIA 4.8 uL (0.0-1933); URINE RBC 6.6 uL (0.0-20.8)
[2025-03-16 11:49] LABS: URINE EPITHELIAL CELLS 0.4 uL (0.0-38.8); URINE WBC 0.3 uL (0.0-23.2)
[2025-03-16 13:19] LABS: BILIRUBIN TOTAL 0.62 mg/dL (0.3-1.2); CALCIUM 9.2 mg/dL (8.5-10.1); CHOL HDL RATIO 2.6 (0-5.0); CREATININE SERUM 0.5 mg/dL (0.55-1.02); FREE TRIODOTIRONINE 2.67 pg/ml (2.18-3.98); GFR 120.28; GLOBULINA 2.9 G/DL (2.4-3.5); POTASSIUM 3.89 mEq/L (3.5-5.1); T4 FREE 1.39 NG/ML (0.76-1.46); TOTAL PROTEIN 6.9 gm/dL (6.4-8.2); TSH 1.26 uIU/mL (0.358-3.74)
[2025-03-16 13:34] LABS: FOLIC ACID > 20.00 ng/ml (4.78-20); VITAMIN D3 25 HYDROXY 80.14 ng/ml (30-120)
[2025-03-16 14:11] LABS: CREATININE URINE RANDOM < 13.00 MG/DL (30-125)
== END | disposition home or self-care (01) ==
LOC: LAB 09:50
PROVIDERS: ATTEND Internal Medicine Endocrinology, Diabetes & Metabolism
DX: E11.65 Type 2 diabetes mellitus with hyperglycemia (principal); E03.9 Hypothyroidism, unspecified; E53.8 Deficiency of other specified B group vitamins; D64.9 Anemia, unspecified; E78.2 Mixed hyperlipidemia; E55.9 Vitamin D deficiency, unspecified; N39.0 Urinary tract infection, site not specified; E11.21 Type 2 diabetes mellitus with diabetic nephropathy

== ENCOUNTER 2025-03-16 10:48 | Outpatient (CLI) | payer OTHER | END 2025-03-16 10:52 | disposition home or self-care (01) | LOC: SONOGRAMA 10:48 | PROVIDERS: ATTEND Orthopaedic Surgery | DX: E04.1 Nontoxic single thyroid nodule (principal); M25.511 Pain in right shoulder ==

== ENCOUNTER 2025-04-27 10:13 | Outpatient (CLI) | payer OTHER | END 2025-04-27 10:20 | disposition home or self-care (01) | LOC: SONOGRAMA 10:13 | PROVIDERS: ATTEND Orthopaedic Surgery | DX: M25.511 Pain in right shoulder (principal); M75.111 Incomplete rotator cuff tear or rupture of right shoulder, not specified as traumatic ==

== ENCOUNTER 2025-06-06 10:39 | Outpatient (CLI) | payer OTHER ==
[2025-06-06 11:15] LABS: URINE APPEARANCE Clear; URINE BILIRRUBIN Negative (NEGATIVE); URINE BLOOD Trace; URINE COLOR Yellow; URINE GLUCOSE Negative (NEGATIVE); URINE KETONE Negative (NEGATIVE); URINE LEUKOCYTE Negative; URINE NITRATE Negative; URINE PROTEIN Negative (NEGATIVE); URINE UROBILINOGEN 0.2 E.U./dl
[2025-06-06 11:16] LABS: URINE RBC 7.1 uL (0.0-20.8)
[2025-06-06 11:21] LABS: BASO % 0.2 % (0.1-1.2); EOS # 0.06 (0.04-0.54); EOS % 1.2 % (0.7-7.0); LYMPH # 1.56 (1.18-3.74); LYMPH % 31.5 % (19.3-53.1); MEAN PLATELET VOLUME 9.30 fl (9.4-12.4); MONO # 0.42 (0.24-0.82); MONO % 8.5 % (4.7-12.5); NEUT # 2.90 (1.56-6.13); NEUT % 58.4 % (34.0-71.1); RED CELL DISTRIBUTION WIDTH 11.9 % (11.6-14.4)
[2025-06-06 11:25] LABS: URINE BACTERIA 2.3 uL (0.0-1933); URINE CAST 0.00 uL (0.0-1.40); URINE EPITHELIAL CELLS 0.1 uL (0.0-38.8); URINE WBC 0.1 uL (0.0-23.2)
[2025-06-06 12:05] LABS: ALT/SGPT 20.0 U/L (12-78); AST/SGOT 13.0 U/L (15-37); BILIRUBIN TOTAL 0.68 mg/dL (0.3-1.2); BUN CREA RATIO 14.0 (7.0-25.0); CREATININE SERUM 0.44 mg/dL (0.55-1.02); FREE TRIODOTIRONINE 2.48 pg/ml (2.18-3.98); GFR 139.4; GLOBULINA 3.1 G/DL (2.4-3.5); GLUCOSE FASTING 92.0 mg/dL (65-100); OSMOLALITY SERUM 280.0 MOSM/KG (275-295); T4 FREE 1.31 NG/ML (0.76-1.46)
[2025-06-06 12:07] LABS: TSH 0.218 uIU/mL (0.358-3.74)
== END 2025-06-06 10:45 | disposition home or self-care (01) ==
LOC: LAB 10:39
PROVIDERS: ATTEND Specialist
DX: N39.9 Disorder of urinary system, unspecified (principal); D64.9 Anemia, unspecified; E11.65 Type 2 diabetes mellitus with hyperglycemia; E55.9 Vitamin D deficiency, unspecified; E03.9 Hypothyroidism, unspecified; I10 Essential (primary) hypertension

== ENCOUNTER → 2025-06-29 10:29 | Outpatient (CLI) | payer OTHER ==
[2025-06-29 11:09] LABS: URINE APPEARANCE Clear; URINE BILIRRUBIN Negative (NEGATIVE); URINE BLOOD Small; URINE COLOR Yellow; URINE GLUCOSE Negative (NEGATIVE); URINE KETONE Negative (NEGATIVE); URINE LEUKOCYTE Negative; URINE NITRATE Negative; URINE PROTEIN Negative (NEGATIVE); URINE UROBILINOGEN 0.2 E.U./dl
[2025-06-29 11:12] LABS: URINE RBC 7.3 uL (0.0-20.8)
[2025-06-29 11:22] LABS: URINE BACTERIA 2.3 uL (0.0-1933); URINE CAST 0.00 uL (0.0-1.40); URINE EPITHELIAL CELLS 0.1 uL (0.0-38.8); URINE WBC 0 uL (0.0-23.2)
[2025-06-29 11:50] LABS: BUN CREA RATIO 13.0 (7.0-25.0); CREATININE SERUM 0.46 mg/dL (0.55-1.02); GFR 132.43; GLUCOSE FASTING 93.0 mg/dL (65-100); OSMOLALITY SERUM 275.0 MOSM/KG (275-295)
== END | disposition home or self-care (01) ==
LOC: LAB 10:29
PROVIDERS: ATTEND Specialist
DX: N28.1 Cyst of kidney, acquired (principal)

== ENCOUNTER 2025-08-12 12:09 | Outpatient (CLI) | payer OTHER | END 2025-08-12 12:12 | disposition home or self-care (01) | LOC: TOM 12:09 | PROVIDERS: ATTEND Specialist | DX: K40.90 Unilateral inguinal hernia, without obstruction or gangrene, not specified as recurrent (principal); K40.30 Unilateral inguinal hernia, with obstruction, without gangrene, not specified as recurrent | CPT/HCPCS: 74177; Q9965 ==

== ENCOUNTER 2025-08-22 10:16 | Outpatient (CLI) | payer OTHER ==
[2025-08-22 11:33] LABS: BASO % 0.2 % (0.1-1.2); EOS # 0.02 (0.04-0.54); EOS % 0.4 % (0.7-7.0); LYMPH # 1.53 (1.18-3.74); LYMPH % 30.4 % (19.3-53.1); MEAN PLATELET VOLUME 9.20 fl (9.4-12.4); MONO # 0.37 (0.24-0.82); MONO % 7.3 % (4.7-12.5); NEUT # 3.10 (1.56-6.13); NEUT % 61.5 % (34.0-71.1); RED CELL DISTRIBUTION WIDTH 12.0 % (11.6-14.4)
[2025-08-22 11:56] LABS: URINE APPEARANCE Clear; URINE BILIRRUBIN Negative (NEGATIVE); URINE BLOOD Moderate; URINE COLOR Yellow; URINE GLUCOSE Negative (NEGATIVE); URINE KETONE Trace (NEGATIVE); URINE LEUKOCYTE Negative; URINE NITRATE Negative; URINE PROTEIN Negative (NEGATIVE); URINE UROBILINOGEN 0.2 E.U./dl
[2025-08-22 12:08] LABS: URINE BACTERIA 11.9 uL (0.0-1933); URINE EPITHELIAL CELLS 1.9 uL (0.0-38.8); URINE RBC 65.1 uL (0.0-20.8)
[2025-08-22 12:12] LABS: URINE WBC 1.0 uL (0.0-23.2)
[2025-08-22 12:13] LABS: URINE CAST 0.00 uL (0.0-1.40)
[2025-08-22 12:51] LABS: ALT/SGPT 21.0 U/L (12-78); AST/SGOT 17.0 U/L (15-37); BILIRUBIN TOTAL 0.58 mg/dL (0.3-1.2); BUN CREA RATIO 17.0 (7.0-25.0); CHOL HDL RATIO 2.5 (0-5.0); CREATININE SERUM 0.41 mg/dL (0.55-1.02); FREE TRIODOTIRONINE 2.83 pg/ml (2.18-3.98); GFR 151.23; GLOBULINA 2.8 G/DL (2.4-3.5); GLUCOSE FASTING 96.0 mg/dL (65-100); HDL 73.0 mg/dl (40-60); LDL 90.0 mg/dl (0-130); OSMOLALITY SERUM 281.0 MOSM/KG (275-295); T4 FREE 1.44 NG/ML (0.76-1.46); VLDL 16.0 (0-39)
[2025-08-22 12:54] LABS: TSH 0.259 uIU/mL (0.358-3.74)
[2025-08-22 15:47] LABS: VITAMIN D3 25 HYDROXY 67.09 ng/ml (30-120)
== END 2025-08-22 10:17 | disposition home or self-care (01) ==
LOC: LAB 10:16
PROVIDERS: ATTEND Specialist
DX: E03.9 Hypothyroidism, unspecified (principal); D64.9 Anemia, unspecified; E53.8 Deficiency of other specified B group vitamins; E78.2 Mixed hyperlipidemia; I10 Essential (primary) hypertension; E55.9 Vitamin D deficiency, unspecified; N39.0 Urinary tract infection, site not specified; N39.9 Disorder of urinary system, unspecified; E11.65 Type 2 diabetes mellitus with hyperglycemia

== ENCOUNTER 2025-10-03 09:28 | Outpatient (CLI) | payer OTHER | END 2025-10-03 09:33 | disposition home or self-care (01) | LOC: LAB 09:28 | PROVIDERS: ATTEND Orthopaedic Surgery | DX: E55.9 Vitamin D deficiency, unspecified (principal); M85.9 Disorder of bone density and structure, unspecified; E21.3 Hyperparathyroidism, unspecified ==